=== PATIENT | female | born 1950 | race Caucasian/White ===

== ENCOUNTER → 2016-12-01 | Outpatient (CLI) | payer OTHER ==
--- NOTE | ~2016-12-01 | MR32 ---
[facility] A Service of [facility] RADIOLOGY TEXT RESULTS PATIENT: CRISTIN TILLEY LOCATION: [facility] : 54 UNIT #: [id number] AGE: [address]: LIA SALINAS SEX: F ORDER DR: [id number] [facility] [address] [place], [place] [address] [id number] O MR#: [id number] Acc #: [id number] NAME: CRISTIN TILLEY : 1950 SEX: F STUDY DATE/TIME: 12/01/2016 8:20 UNIT: [facility] ROOM: STUDY DESCRIPTION: MR Cervical Wo Contrast Attending Physician: Lia Salinas Pa-C Referring Physician: Lia Salinas Pa-C Ordering Physician: Jude Cline Jr., M.D. Primary Care Physician: Jude Cline Jr., M.D. MRI CENTER REPORT This report is preliminary unless electronic signature is present. EXAM MRI of the cervical spine without contrast dated 12/01/2016 COMPARISON MRI thoracic spine without contrast dated 12/01/2016. No prior cervical spine studies. HISTORY Heavy yard work 2 weeks ago with severe lower neck and upper back pain with some pain and numbness in the left arm. FINDINGS Multisequence multiplanar imaging of the cervical spine was obtained without contrast. Vertebral body heights and alignment are preserved. There is straightening of normal cervical curvature. Disc osteophyte complex are noted at multiple levels. Cord demonstrates normal course, caliber and signal. Imaged posterior fossa and craniovertebral junction are unremarkable. Pre and paravertebral soft tissues do not demonstrate any significant abnormality. C2-3: Concentric disc bulge with small central protrusion. No canal stenosis or neural foraminal narrowing. C3-4: Concentric disc bulge with small central protrusion. Right uncinate spur, mild to moderate right facet hypertrophic change and superior right neural foraminal narrowing is noted with patent inferior aspect. C4-5: Concentric disc bulge with small central protrusion. No canal stenosis or neural foraminal narrowing. C5-6: Concentric disc bulge with superimposed tudmban-eg-uenhu subarticular broad-based protrusion with right uncinate spur. There is xvkw-bn-akmzikhl canal stenosis. Mild right neural foraminal encroachment [facility] A Service of [facility] / [facility] RADIOLOGY TEXT RESULTS PATIENT: CRISTIN TILLEY LOCATION: [facility] : [birth year] UNIT #: [id number] AGE: [address]: LIA SALINAS SEX: F ORDER DR: is noted along the superior aspect without any nerve impingement. C6-7: Concentric disc bulge with mild right neural foraminal narrowing and borderline size to mild canal stenosis. C7-T1: Tiny central protrusion without canal stenosis or neural foraminal narrowing. IMPRESSION 1. Mild degenerative changes are noted in the cervical spine, relatively worse at C5-6 and C6-7 with qqvt-zo-dnbgnjri canal stenosis without cord compression. 2. Small protrusions are noted at the other levels without any canal stenosis. 3. Cord is unremarkable. Dictated by... Cirilo Nichols M.D. THIS IS AN ELECTRONICALLY VERIFIED REPORT Cirilo Nichols M.D. at 12/02/2016 4:46 PM CPR/rnr TD: 12/01/2016 23:10 JOB #: [id number] MRI CENTER REPORT Page 1 of 1 COPY
--- NOTE | ~2016-12-01 | MR176 ---
[facility] A Service of [facility] RADIOLOGY TEXT RESULTS PATIENT: CRISTIN TILLEY LOCATION: [facility] : 54 UNIT #: [id number] AGE: [address]: LIA SALINAS SEX: F ORDER DR: [id number] [facility] [address] [place], [place] [address] [id number] O MR#: [id number] Acc #: [id number] NAME: CRISTIN TILLEY : 1950 SEX: F STUDY DATE/TIME: 12/01/2016 8:50 UNIT: [facility] ROOM: STUDY DESCRIPTION: MR Thoracic Wo Contrast Attending Physician: Lia Salinas Pa-C Referring Physician: Lia Salinas Pa-C Ordering Physician: Jude Cline Jr., M.D. Primary Care Physician: Jude Cline Jr., M.D. MRI CENTER REPORT This report is preliminary unless electronic signature is present. EXAM MRI of the thoracic spine without contrast dated 12/01/2016. COMPARISON MRI cervical spine without contrast dated 12/01/2016. No prior thoracic spine studies. HISTORY Heavy yard work 2 weeks ago with subsequent severe pain in the neck and upper thoracic spine. Some pain and numbness extends to the left arm. FINDINGS Multisequence multiplanar imaging of the thoracic spine was obtained without contrast. Vertebral body heights and alignment are preserved. Degenerative disc disease is seen at multiple levels. Thoracic cord demonstrates normal expected course, caliber and signal. Pre and paravertebral soft tissues demonstrate a right mffxu-up-cwf lung zone 1.4 cm x 1.2 cm in the right mid lung zone in the axial T2 sequence (series 6, image 24). It is not well correlated in the other sequences and is not evaluated. T6-7: Moderate protrusion/extrusion extending from the left central to left foraminal region of T6-7, most prominent in the left subarticular region. Mild left neural foraminal encroachment is present. T9-10: Mild bilateral facet changes but otherwise unremarkable. T10-11: Moderate protrusion/extrusion in the right yhnhktx-cu-tlhckbunyiun region with mild displacement of the cord posteriorly without obvious cord signal change. Mild bilateral facet changes. T11-12: Concentric disc bulge with central tiny protrusion. Small left STS. [facility] A Service of [facility] RADIOLOGY TEXT RESULTS PATIENT: CRISTIN TILLEY LOCATION: [facility] : 54 UNIT #: [id number] AGE: [address]: LIA SALINAS SEX: F ORDER DR: cbpccnbcv-bf-ssudyvfaqwrkry protrusion is probably present too with lkva-ws-mjoyhjfb bilateral facet changes and mild mass effect on the adjacent thecal sac. T12-L1: Concentric disc bulge with small jexeq-bo-ownz central protrusion, better seen on the sagittal T2 sequences (series 4, image 8). No canal stenosis or neural foraminal narrowing. Mild bilateral facet changes. IMPRESSION 1. Multilevel protrusions are noted in the thoracic spine, relatively worse at T6-7, T10-11 followed by T8-9. 2. Facet changes are noted at multiple levels, relatively worse in bilateral T11-12. 3. 1.4 x 1.2 cm increased density is noted within the right mid lung on the axial images, incompletely characterized on the current study. There are no previous CT chest available. Correlation with CT chest with contrast would be helpful. Dictated by.Jaylin. Cirilo Nichols M.D. THIS IS AN ELECTRONICALLY VERIFIED REPORT Cirilo Nichols M.D. at 12/02/2016 4:46 PM CPR/rnr TD: 12/01/2016 23:25 JOB #: [id number] MRI CENTER REPORT Page 1 of 1 COPY
== END | disposition home or self-care (01) ==
LOC: CMRI 07:38
DX: M51.14 Intervertebral disc disorders with radiculopathy, thoracic region (principal); M54.40 Lumbago with sciatica, unspecified side; M47.22 Other spondylosis with radiculopathy, cervical region; M48.02 Spinal stenosis, cervical region; M50.10 Cervical disc disorder with radiculopathy, unspecified cervical region
CPT/HCPCS: 72141; 72146

== ENCOUNTER → 2016-12-06 | Outpatient (CLI) | payer OTHER ==
--- NOTE | ~2016-12-06 | CT55 ---
[facility] A Service of [facility] / [facility] RADIOLOGY TEXT RESULTS PATIENT: CRISTIN TILLEY [facility] [birth year] UNIT #: [id number] AGE: [address]: LIA SWAIN SEX: F ORDER DR: [id number] [facility] [address] [place], [place] [address] [id number] O MR#: [id number] Acc #: [id number] NAME: CRISTIN TILLEY : 1950 SEX: F STUDY DATE/TIME: 12/06/2016 7:35 UNIT: [facility] ROOM: STUDY DESCRIPTION: CT Chest W Con Attending Physician: Lia Swain Pa-C Referring Physician: Lia Swain Pa-C Ordering Physician: Physician Non-Staff Primary Care Physician: Lia Swain Pa-C MEDICAL IMAGING REPORT This report is preliminary unless electronic signature is present EXAM Chest CT 12/06 INDICATIONS Abnormal thoracic spine MRI on 12/01/2016 showing a potential right lung lesion. Chest CT was recommended. Patient has no current complaints. TECHNIQUE Axial images were obtained through the chest following IV contrast administration. Multiplanar reformats were obtained. Comparison made with thoracic MRI dated 12/01/2016. No comparison chest CT. This CT exam was performed with one or more of the following radiation dose reduction techniques: automatic control, adjustment of mA and/or kV according to patient size, and iterative reconstruction. FINDINGS No pleural or pericardial effusion. No thoracic adenopathy. Lung windows demonstrate a small focus of ground-glass infiltrate in the right upper lobe. This does correspond to the MRI abnormality and is probably infectious or inflammatory. Chest CT followup in 3 months is recommended to document resolution. Lungs are otherwise clear except for some mild bilateral dependent atelectasis. Continuation through the upper abdomen shows cholecystectomy. IMPRESSION Small focus of ground-glass infiltrate in the right upper lobe that corresponds to the MRI abnormality. This is probably a small focus of pneumonia/pneumonitis. Consider followup chest CT in 3 months to document improvement. Chest CT is otherwise negative. Dictated by... Zachariah Maldonado Jr., M.D. [facility] A Service of [facility] / [facility] RADIOLOGY TEXT RESULTS PATIENT: CRISTIN TILLEY LOCATION: [facility] : 54 UNIT #: [id number] AGE: [address]: LIA SWAIN SEX: F ORDER DR: THIS IS AN ELECTRONICALLY VERIFIED REPORT Zachariah Maldonado Jr., M.D. at 12/07/2016 2:09 PM IRINA/donald TD: 12/06/2016 14:22 JOB #: [id number] MEDICAL IMAGING REPORT Page 1 of 1 COPY
[2016-12-06 10:01] LABS: POC - CREATININE 1.13 mg/dL (0.44-1.03)
== END | disposition home or self-care (01) ==
LOC: CCAT 06:56
PROVIDERS: Family Medicine Addiction Medicine
DX: R91.1 Solitary pulmonary nodule (principal); R91.8 Other nonspecific abnormal finding of lung field
CPT/HCPCS: 71260; 82565; Q9967